=== PATIENT | female | born 1950 | race Asian ===

== ENCOUNTER → 2019-03-18 | Outpatient (CLI) | payer MEDICARE, OTHER | LOC: COL.VAS 14:02 | DX: I34.0 Nonrheumatic mitral (valve) insufficiency (principal) ==

== ENCOUNTER → 2020-06-14 | Outpatient (CLI) | payer MEDICARE, OTHER | LOC: COL.RAD | DX: K76.0 Fatty (change of) liver, not elsewhere classified (principal); M25.511 Pain in right shoulder ==